=== PATIENT | female | born 1990 | race Caucasian/White ===

== ENCOUNTER 2021-12-10 09:30 | Outpatient (CLI) | payer BC ==
[2021-12-10 18:25] LABS: SARS-CoV-2 PCR by NAA Not Detected (NotDetected)
== END 2021-12-10 09:31 | disposition home or self-care (01) ==
LOC: CSHLAB 09:30
PROVIDERS: ATTEND Obstetrics & Gynecology
DX: Z20.822 Contact with and (suspected) exposure to COVID-19 (principal)
CPT/HCPCS: U0003; U0005

== ENCOUNTER 2021-12-15 08:57 | Inpatient (IN) | payer BC ==
[2021-12-15] MEDS ORDERED: Ibuprofen 800 MG TAB PO PRN (09:23)
[2021-12-15] MEDS ORDERED: Promethazine HCl 25 MG/ML VIAL IM PRN (09:23)
[2021-12-15] MEDS ORDERED: Butorphanol Tartrate 1 MG/ML VIAL SLOW IVP PRN (09:23)
[2021-12-15] MEDS ORDERED: hydrALAZINE 20 MG/ML VIAL SLOW IVP PRN ×2 (09:23→11:18)
[2021-12-15] MEDS ORDERED: Ondansetron PF 4 MG/2 ML Vial IVP PRN ×2 (09:23→11:18)
[2021-12-15] MEDS ORDERED: Lidocaine 1% (PF) 30 ML VIAL SC PRN (09:23)
[2021-12-15] MEDS ORDERED: HYDROcodone/Acetaminophen 5/325 mg Tablet PO PRN ×3 (09:23→11:18)
[2021-12-15] MEDS ORDERED: Penicillin G Potassium 5 MILL.UNITS VIAL ONE (09:27)
[2021-12-15] MEDS ORDERED: Penicillin G 2.5 MILL.units 2.5 MILL.UNITS in Premix Bag 1 BAG IVPB SCH (09:30)
[2021-12-15] MEDS ORDERED: NS w/ Oxytocin 30 units 500 ML IV SCH (09:30)
[2021-12-15] MEDS ORDERED: Lactated Ringer's 1,000 ML IV SCH (09:30)
[2021-12-15] MEDS ORDERED: Penicillin G Potassium 5 MILL.UNITS in Sodium Chloride 0.9% 100 ML IVPB SCH (09:30)
[2021-12-15 10:11] LABS: Hemoglobin 13.7 g/dL (12.0-15.5); Mean Corpuscular HGB CONC 35.7 g/dL (32.0-36.0); Mean Corpuscular Hemoglobin 30.9 pg (27.0-33.0); Mean Corpuscular Volume 86.5 fl (81.6-98.3); Mean Platelet Volume 9.3 fl (7.4-10.4); Platelet Count 243 10x3/uL (150-450); RBC Distribution Width 13.4 % (11.5-14.5); Red Blood Cell (RBC) Count 4.44 10x6/uL (3.90-5.03); White Blood Cell (WBC) Count 11.7 10x3/uL (3.5-10.5)
[2021-12-15] MEDS ORDERED: NS w/ Oxytocin 30 units 500 ML ONE (10:16)
[2021-12-15 10:26] LABS: Hep B Surf Ag Non-Reactive S/CO (NonReactive); Syphilis Antibody Nonreactive (Nonreactive); Syphilis Antibody Index 0.04 S/CO (<1.00 Non-Reactive)
[2021-12-15 10:39] LABS: HBSAg Index 0.16 S/CO (0-0.99)
[2021-12-15] MEDS ORDERED: Benzocaine-Menthol 82.5 ML CAN TOP PRN (11:18)
[2021-12-15] MEDS ORDERED: Boostrix 0.5 ML (Tdap) VIAL IM ONE (11:18)
[2021-12-15] MEDS ORDERED: Preparation H Ointment 28 GM TUBE PR PRN (11:18)
[2021-12-15] MEDS ORDERED: Bisacodyl 10 MG SUPP PR PRN (11:18)
[2021-12-15] MEDS ORDERED: diphenhydrAMINE 25 MG CAP PO PRN (11:18)
[2021-12-15] MEDS ORDERED: Lanolin Ointment 7 GM TUBE TOP PRN (11:18)
[2021-12-15] MEDS ORDERED: Milk Of Magnesia 30 ML UDCUP PO PRN (11:18)
[2021-12-15 14:00] VITALS: BMI 25.8
[2021-12-15] MEDS: Ibuprofen 800 MG TAB PO SCH ×2 (15:00→20:05)
[2021-12-15] MEDS: Ferrous Sulfate 325 MG TAB PO SCH (16:51)
[2021-12-15] MEDS: Docusate 100 MG CAP PO SCH (20:06)
[2021-12-15] MEDS ORDERED: Acetaminophen 500 MG TAB PO PRN ×2 (21:50→21:51)
[2021-12-16] MEDS: Ibuprofen 800 MG TAB PO SCH ×3 (04:39→21:43)
[2021-12-16] MEDS: Ferrous Sulfate 325 MG TAB PO SCH ×2 (07:31→15:49)
[2021-12-16] MEDS: Docusate 100 MG CAP PO SCH ×2 (08:39→21:44)
[2021-12-16] MEDS: Prenatal Vitamin 1 TAB PO SCH (08:39)
[2021-12-17] MEDS: Ibuprofen 800 MG TAB PO SCH ×2 (05:11→13:18)
[2021-12-17 07:54] VITALS: BP 121/72; TEMP 98.4
[2021-12-17] MEDS: Ferrous Sulfate 325 MG TAB PO SCH (08:06)
[2021-12-17] MEDS: Docusate 100 MG CAP PO SCH (08:42)
[2021-12-17] MEDS: Prenatal Vitamin 1 TAB PO SCH (08:42)
== END 2021-12-17 13:19 | disposition home or self-care (01) | DRG 807 ==
LOC: CSHLD/OP 08:57 → CSHLD 09:51 → CSHPP 12:55
PROVIDERS: ADMIT Obstetrics & Gynecology; ATTEND Obstetrics & Gynecology
PROC: 10E0XZZ Delivery of Products of Conception, External Approach (ICD-10-PCS; principal; 2021-12-15)
DX: O80 Encounter for full-term uncomplicated delivery (principal); Z37.0 Single live birth; Z3A.40 40 weeks gestation of pregnancy
CPT/HCPCS: 36415; 85027; 86780; 86850; 86900; 86901; 87340; 99285; J2540

== ENCOUNTER 2023-06-05 13:37 | Outpatient (CLI) | payer BC | END 2023-06-05 13:38 | disposition home or self-care (01) | LOC: CSHLAB 13:37 | PROVIDERS: ATTEND Obstetrics & Gynecology | DX: Z01.812 Encounter for preprocedural laboratory examination (principal); N92.0 Excessive and frequent menstruation with regular cycle; Z53.9 Procedure and treatment not carried out, unspecified reason | CPT/HCPCS: 84703; 85027; 86850; 86900; 86901 ==

== ENCOUNTER 2023-06-08 08:32 | Day surgery (SDC) | payer BC ==
[2023-06-05 14:32] VITALS: BMI 21.1
[2023-06-05 15:06] LABS: Hematocrit 41.5 % (34.9-44.5); Mean Corpuscular HGB CONC 33.7 g/dL (32.0-36.0); Mean Corpuscular Hemoglobin 28.7 pg (27.0-33.0); Mean Platelet Volume 9.6 fl (7.4-10.4); Platelet Count 277 10x3/uL (150-450); RBC Distribution Width 12.8 % (11.5-14.5); Red Blood Cell (RBC) Count 4.88 10x6/uL (3.90-5.03); White Blood Cell (WBC) Count 8.3 10x3/uL (3.5-10.5)
[2023-06-05 15:45] LABS: BHCG - Serum Negative (NEGATIVE); Pregs Control Background? CLEAR/WHITE (CLR/WHITE); Pregs Control Bar Appear? YES (CONTROL BAR)
[2023-06-08] MEDS ORDERED: Lidocaine 2% PF 5 ML VIAL ONE (10:33)
[2023-06-08] MEDS ORDERED: Fentanyl 250 MCG/5 ML VIAL ONE (10:33)
[2023-06-08] MEDS ORDERED: Ondansetron PF 4 MG/2 ML Vial ONE (10:33)
[2023-06-08] MEDS ORDERED: PROPOFOL 20 ML ONE (10:33)
[2023-06-08] MEDS ORDERED: Midazolam HCl 2 mg/2 ml Vial ONE (10:33)
[2023-06-08] MEDS ORDERED: Dexamethasone 4 mg/ml Vial ONE (10:33)
[2023-06-08] MEDS ORDERED: Isosulfan Blue 50 MG/5 ML VIAL ONE (11:11)
[2023-06-08] MEDS ORDERED: EPINEPHrine 1 MG/ML VIAL ONE (11:11)
[2023-06-08] MEDS ORDERED: Bupivacaine PF 0.5% 30 ML VIAL ONE (11:12)
[2023-06-08] MEDS ORDERED: CEFAZOLIN 2 GM VIAL ONE (11:13)
[2023-06-08] MEDS ORDERED: HYDROcodone/Acetaminophen 5/325 mg Tablet PO PRN (12:06)
[2023-06-08] MEDS ORDERED: Acetaminophen 325 MG TAB PO PRN (12:06)
[2023-06-08] MEDS ORDERED: Meperidine HCl/PF 25 MG/ML VIAL ONE (12:44)
[2023-06-08] MEDS ORDERED: HYDROcodone/Acetaminophen 5/325 mg Tablet ONE (13:22)
== END 2023-06-08 15:50 | disposition home or self-care (01) ==
LOC: CSHSDC 08:32
PROVIDERS: ATTEND Surgery
PROC: 0U5B8ZZ Destruction of Endometrium, Via Natural or Artificial Opening Endoscopic (ICD-10-PCS; principal; 2023-06-08)
PROC: 0HBU0ZZ Excision of Left Breast, Open Approach (ICD-10-PCS; 2023-06-08)
DX: D24.2 Benign neoplasm of left breast (principal); N63.20 Unspecified lump in the left breast, unspecified quadrant; N92.0 Excessive and frequent menstruation with regular cycle; I10 Essential (primary) hypertension; E11.9 Type 2 diabetes mellitus without complications; I25.10 Atherosclerotic heart disease of native coronary artery without angina pectoris; Z98.890 Other specified postprocedural states; Z79.899 Other long term (current) drug therapy
CPT/HCPCS: 84703; 85027; 86850; 86900; 86901; 88305; J0171; J1100; J2001; J2175; J2250; J2405; J2704; J3010; Q9968; S0020